=== PATIENT | female | born 1985 | race African-American/Black ===

== ENCOUNTER 2016-05-17 15:34 | Emergency (ER) | payer SELFPAY ==
[~2016-05-17] VITALS: Ht 167.6 cm; Wt 112.0 kg
[~2016-05-17 15:34] MED LIST: METF500 PO; NOVOLOGSS SQ; ZOFR4TAB3 SL
[2016-05-17 15:42] VITALS: BP 155/103; PULSE 94; RESP 20; TEMP 98.3; O2SAT 100
--- NOTE | 2016-05-17 16:04 | PD ---
HPI Chief Complaint: Diabetic Time Seen by Provider: 16:17 Travel History International Travel<30 days: No Contact w/Intl Traveler<30days: No Traveled to known affect area: No History of Present Illness HPI 31-year-old Afro-[place]ian female presents the emergency department with elevated blood sugars elevated blood pressure after being without her medications for approximately 3 days. Patient normally takes metformin 500 mg 3 times a day as well as lisinopril 20 mg daily. Patient is currently without insurance and has no local PCP. Patient has a mild headache but otherwise no medical complaints currently. She has a history of MRSA in the past. She has no known drug allergies PFSH Past Medical History Cancer: No Cardiovascular Problems: Yes (HTN) High Cholesterol: Yes Diabetes: Yes (METFORMIN) Patient Takes Glucophage: Yes (METFORMIN) Diminished Hearing: No Endocrine: No Genitourinary: No Hypertension: Yes Immune Disorder: No Musculoskeletal: No Neurologic: Yes Psychiatric: No Reproductive: No Respiratory: No Thyroid Disease: No Tetanus Vaccination: Unknown Influenza Vaccination: No ?: Not : 0 Para: 0 Miscarriage: 0 : 0 Past Surgical History Surgical History: No Previous Surgery Other Surgery: No Social History Alcohol Use: Yes (SOCIAL) Tobacco Use: Yes (BLACK AND MILD) Substance Use: No Allergies-Medications (Allergen,Severity, Reaction): Coded Allergies: *MDRO Multi-Drug Resistant Organism (Unverified Allergy, Unknown, 07/26/14) MRSA 2013 Reported Meds & Prescriptions Reported Meds & Active Scripts Active Metformin (Metformin HCl) 500 Mg Tab 500 Mg PO TIDPC With meals Lisinopril 20 Mg Tab 20 Mg PO DAILY Glucophage 500 mg (Metformin HCl) 500 Mg Tab 500 Mg PO DAILY 30 Days Zofran ODT (Ondansetron HCl) 4 Mg Tab 4 Mg SL Q6H PRN Glucophage 500 mg (Metformin HCl) 500 Mg Tab 500 Mg PO BIDPC 30 Days Reported Novolog Insulin Supplemental Scale (Insulin Aspart) 100 /Ml Inj Unit SQ ACHS SLIDING SCALE FOLLOW SLIDIING SCALE DIRECTED 151-200 ONE UNIT 201-250 TWO UNITS 251-300 FOUR UNITS 301-350 SIX UNITS 351-400 EIGHT UNITS CALL PCP IF LESS THAN 70 OR GREATER THAN 400 Review of Systems Except as stated in HPI: all other systems reviewed are Neg General / Constitutional: No: Fever Eyes: No: Visual changes HENT: Positive: Headaches (mild generalized) Cardiovascular: No: Chest Pain or Discomfort Respiratory: No: Shortness of Breath Gastrointestinal: No: Abdominal Pain Genitourinary: No: Dysuria Musculoskeletal: No: Pain Skin: No Rash Neurologic: No: Weakness Psychiatric: No: Depression Endocrine: No: Polydipsia Hematologic/Lymphatic: No: Easy Bruising Physical Exam Narrative GENERAL: Patient appears in no acute distress. SKIN: Warm and dry. Normal color. Normal turgor. HEAD: Atraumatic. Normocephalic. EYES: Pupils equal and round. No scleral icterus. No injection or drainage. ENT: No nasal bleeding or discharge. Mucous membranes pink and moist. Pharynx is normal. NECK: Trachea midline. No JVD. Neck is supple nontender. CARDIOVASCULAR: Regular rate and rhythm. No murmurs gallops or rubs. RESPIRATORY: No accessory muscle use. Clear to auscultation. Breath sounds equal bilaterally. GASTROINTESTINAL: Abdomen soft, non-tender, nondistended. Hepatic and splenic margins not palpable. MUSCULOSKELETAL: Extremities without clubbing, cyanosis, or edema. No obvious deformities. NEUROLOGICAL: Awake and alert. No obvious cranial nerve deficits. Motor grossly within normal limits. Five out of 5 muscle strength in the arms and legs. Normal speech. PSYCHIATRIC: Appropriate mood and affect; insight and judgment normal. Data Data Last Documented VS Vital Signs Date Time Temp Pulse Resp B/P Pulse Ox O2 Delivery O2 Flow Rate FiO2 05/17/16 15:57 Room Air 05/17/16 15:42 98.3 94 20 155/103 100 MDM Medical Decision Making Medical Screen Exam Complete: Yes Emergency Medical Condition: Yes Differential Diagnosis Hyperglycemia. Type 2 diabetes not controlled. Hypertension. Need for medication refills. Narrative Course Patient is felt to be medically stable at time of exam. Patient is discussed with Dr. Lira who feels the patient can be given refills of her medication follow with the [facility] clinic. Further workup was not felt necessary at this time. Patient is given a prescription for metformin 500 mg 3 times a day #90 with 2 refills. Patient is given a prescription for lisinopril 20 mg daily #30 with 2 refills. Patient is to follow with the [facility] clinic as discussed. Patient can return to emergency Department with worsening symptoms as necessary. Diagnosis Primary Impression: Diabetes mellitus Qualified Code: E11.65 - Type 2 diabetes mellitus with hyperglycemia, without long-term current use of insulin Additional Impression: Hypertension Qualified Code: I10 - Essential hypertension Referrals: [facility] 1 week Patient Instructions: 2 Gram Sodium Diet (GEN), General Instructions Additional Instructions: Further workup was not felt necessary at this time. Patient is given a prescription for metformin 500 mg 3 times a day #90 with 2 refills. Patient is given a prescription for lisinopril 20 mg daily #30 with 2 refills. Patient is to follow with [facility] as discussed. Patient can return to emergency Department with worsening symptoms as necessary. Med/Other Pt SpecificInfo: Prescription(s) given Scripts Metformin 500 Mg Qjd120 Mg PO TIDPC #90 TAB Ref 2 With meals Prov:Genaro Lira MD 05/17/16 Lisinopril 20 Mg Tab20 Mg PO DAILY #30 TAB Ref 2 Prov:Genaro Lira MD 05/17/16 Disposition: 01 DISCHARGE HOME Condition: Stable Hua Coates May 17, 2016 16:04
[2016-05-17] MEDS ORDERED: METF500T PO (16:18)
[2016-05-17] MEDS ORDERED: LISI-515 PO (16:18)
[2016-05-17 16:38] VITALS: BP 150/100
== END 2016-05-17 16:59 | disposition home or self-care (01) ==
LOC: PHEFT 15:34
DX: E11.65 Type 2 diabetes mellitus with hyperglycemia (principal); I10 Essential (primary) hypertension; Z79.4 Long term (current) use of insulin
CPT/HCPCS: 99284

== ENCOUNTER 2016-11-24 15:50 | Emergency (ER) | payer SELFPAY ==
[~2016-11-24] VITALS: Ht 167.6 cm; Wt 112.0 kg
[~2016-11-24 15:50] MED LIST changes: +LISI-515 PO; +METF500T PO
[2016-11-24 15:52] VITALS: BP 175/107; PULSE 100; RESP 18; TEMP 99.3; O2SAT 100
--- NOTE | 2016-11-24 17:09 | PD ---
HPI Chief Complaint: Headache Time Seen by Provider: 17:01 Travel History International Travel<30 days: No Contact w/Intl Traveler<30days: No Traveled to known affect area: No History of Present Illness HPI 31yo F with PMH of HTN and DM presents to the ED with c/o headache for 4 days. Pt states she ran out of her lisinopril and metformin 4 days ago and had similar headache when she ran out of her medications. Headache is bitemporal, pressure like, intermittent and relieved with acetaminophen yesterday when she took it last night. However, headache returned today. Denies any fever, visual changes, chest pain, sob, n/v, abdominal pain, focal weakness or numbness. LMP last month. PFSH Past Medical History Cancer: No Cardiovascular Problems: Yes High Cholesterol: Yes Diabetes: Yes Patient Takes Glucophage: Yes Diminished Hearing: No Endocrine: No Genitourinary: No Hypertension: Yes Immune Disorder: No Musculoskeletal: No Neurologic: Yes Psychiatric: No Reproductive: No Respiratory: No Thyroid Disease: No ?: Not : 0 Para: 0 Miscarriage: 0 : 0 Past Surgical History Surgical History: No Previous Surgery Other Surgery: No Social History Alcohol Use: Yes (SOCIAL) Tobacco Use: No (denies) Substance Use: No Allergies-Medications (Allergen,Severity, Reaction): Coded Allergies: *MDRO Multi-Drug Resistant Organism (Unverified Allergy, Unknown, 07/26/14) MRSA 2013 Reported Meds & Prescriptions Reported Meds & Active Scripts Active Metformin (Metformin HCl) 500 Mg Tab 500 Mg PO TIDPC With meals Lisinopril 20 Mg Tab 20 Mg PO DAILY Review of Systems Except as stated in HPI: all other systems reviewed are Neg Physical Exam Narrative GENERAL: 31yo F not in distress. SKIN: Focused skin assessment warm/dry. HEAD: Atraumatic. Normocephalic. EYES: Pupils equal and round at 4mm bilaterally. No scleral icterus. No injection or drainage. ENT: No nasal bleeding or discharge. Mucous membranes pink and moist. NECK: Trachea midline. No JVD. CARDIOVASCULAR: Regular rate and rhythm. No murmur appreciated. RESPIRATORY: No accessory muscle use. Clear to auscultation. Breath sounds equal bilaterally. GASTROINTESTINAL: Abdomen soft, non-tender, nondistended. MUSCULOSKELETAL: No obvious deformities. No clubbing. No cyanosis. No edema. NEUROLOGICAL: Awake and alert. No obvious cranial nerve deficits. Motor grossly within normal limits. Normal speech. PSYCHIATRIC: Appropriate mood and affect; insight and judgment normal. Data Data Last Documented VS Vital Signs Date Time Temp Pulse Resp B/P (MAP) Pulse Ox O2 Delivery O2 Flow Rate FiO2 11/24/16 18:10 89 18 178/88 (118) 98 Room Air 11/24/16 15:52 99.3 Orders Orders Ketorolac Inj (Toradol Inj) (11/24/16 17:15) Basic Metabolic Panel (Bmp) (11/24/16 17:05) Lisinopril (Prinivil) (11/24/16 17:15) Labs Laboratory Tests Test 11/24/16 17:18 Blood Urea Nitrogen 27 MG/DL Creatinine 1.70 MG/DL Random Glucose 205 MG/DL Calcium Level 8.2 MG/DL Sodium Level 135 MEQ/L Potassium Level 4.4 MEQ/L Chloride Level 103 MEQ/L Carbon Dioxide Level 22.9 MEQ/L Anion Gap 9 MEQ/L Estimat Glomerular Filtration Rate 42 ML/MIN MDM Medical Decision Making Medical Screen Exam Complete: Yes Emergency Medical Condition: Yes Differential Diagnosis Migraine headache vs. tension headache vs. headache secondary to hypertension Narrative Course 31yo F with bilateral temporal headache for 4 days. Pt is well appearing and has no red flags. Pt's blood pressure is elevated at 175/107 and ran out of her lisinopril 4 days ago. Pt given lisinopril and blood pressure improved. Labs reviewed, and BUN/creatinine is elevated at 27/1.70. Pt tolerating PO, instructed pt to hydrate orally. Instructed pt to follow up with primary care or [facility] regarding this. Glucose is elevated at 205. No increased in anion gap. CO2 normal. Pt reevaluated after toradol and headache has resolved. Return precautions given. Diagnosis Primary Impression: Elevated serum creatinine Patient Instructions: General Instructions Departure Forms: Tests/Procedures Additional Instructions: Please follow up with [facility] clinic or your primary care physician regarding your elevated creatinine level of 1.70. Return to the ED if symptoms worsen. Med/Other Pt SpecificInfo: Prescription(s) given Scripts Metformin (Metformin) 500 Mg Tab 500 MG PO BIDPC for Blood Sugar Management, #60 TAB 0 Refills With meals Prov: Galina García DO 11/24/16 Lisinopril (Lisinopril) 20 Mg Tab 20 MG PO DAILY, #30 TAB 0 Refills Prov: Galina García DO 11/24/16 Disposition: 01 DISCHARGE HOME Condition: Stable Galina García DO Nov 24, 2016 17:09
[2016-11-24] MEDS ORDERED: LISINOPRIL 20 MG TAB PO ONE (17:15)
[2016-11-24] MEDS ORDERED: KETOROLAC TROMETHAMINE 30 MG/ML (IVP) VIAL IV PUSH ONE (17:15)
[2016-11-24 17:43] LABS: POTASSIUM 4.4 MEQ/L (3.5-5.1)
[2016-11-24 17:46] LABS: BICARBONATE 22.9 MEQ/L (21.0-32.0)
[2016-11-24 18:10] VITALS: BP 178/88; PULSE 89; RESP 18; O2SAT 98
[2016-11-24] MEDS ORDERED: METF500T PO (18:53)
[2016-11-24] MEDS ORDERED: LISI-515 PO (18:53)
[2016-11-24 19:29] VITALS: BP 189/117
== END 2016-11-24 19:42 | disposition home or self-care (01) ==
LOC: PHED 15:50
DX: R79.89 Other specified abnormal findings of blood chemistry (principal); I10 Essential (primary) hypertension; E11.9 Type 2 diabetes mellitus without complications; Z79.84 Long term (current) use of oral hypoglycemic drugs; Z79.899 Other long term (current) drug therapy
CPT/HCPCS: 80048; 96374; 99284; J1885

== ENCOUNTER 2017-05-05 11:46 | Emergency (ER) | payer SELFPAY ==
[~2017-05-05] VITALS: Ht 165.1 cm; Wt 111.2 kg
[~2017-05-05 11:46] MED LIST changes: -METF500 PO; -NOVOLOGSS SQ; -ZOFR4TAB3 SL
[2017-05-05 11:54] VITALS: BP 185/107; PULSE 88; RESP 16; TEMP 98; O2SAT 100
--- NOTE | 2017-05-05 12:25 | PD ---
HPI . Headache Chief Complaint: Hypertension Time Seen by Provider: 12:17 Travel History International Travel<30 days: No Contact w/Intl Traveler<30days: No Traveled to known affect area: No History of Present Illness HPI Patient presents with chief complaint of a frontal and bitemporal headache which started several days ago. She is unable to characterize her pain. He does state that the pain is improved by lying in a dark room with her eyes closed. She has not tried taking any medications for it. She denies any associated symptoms such as blurred vision, fever or nausea. In addition, she is complaining with left low back pain which is exacerbated by movement. Lastly, she states that she is out of her blood pressure medication. I asked her who prescribes her blood pressure medication as she states "the ER." [facility] Past Medical History Cancer: No Cardiovascular Problems: Yes High Cholesterol: Yes Diabetes: Yes Diminished Hearing: No Endocrine: No Genitourinary: No Hypertension: Yes Immune Disorder: No Musculoskeletal: No Neurologic: Yes Psychiatric: No Reproductive: No Respiratory: No Thyroid Disease: No ?: Not LMP: 04/20/17 : 0 Para: 0 Miscarriage: 0 : 0 Past Surgical History Other Surgery: No Social History Alcohol Use: Yes (SOCIAL) Tobacco Use: No (denies) Substance Use: No Allergies-Medications (Allergen,Severity, Reaction): Coded Allergies: *MDRO Multi-Drug Resistant Organism (Unverified Allergy, Unknown, 05/05/17) MRSA 2013 Reported Meds & Prescriptions Reported Meds & Active Scripts Active Metformin (Metformin HCl) 500 Mg Tab 500 Mg PO BIDPC With meals Lisinopril 20 Mg Tab 20 Mg PO DAILY Metformin (Metformin HCl) 500 Mg Tab 500 Mg PO TIDPC With meals Lisinopril 20 Mg Tab 20 Mg PO DAILY Review of Systems Except as stated in HPI: all other systems reviewed are Neg General / Constitutional: No: Fever, Chills Eyes: No: Blurred Vision HENT: Positive: Headaches Gastrointestinal: No: Nausea, Vomiting Physical Exam Narrative GENERAL: Awake and alert and in no acute distress. SKIN: Warm and dry. HEAD: Normocephalic/atraumatic. EYES: Pupils are equal. Extraocular movements are intact. NECK: Normal range of motion. Supple. CARDIOVASCULAR: Regular rate and rhythm. RESPIRATORY: Nonlabored respirations. MUSCULOSKELETAL: She has mild tenderness to palpation of the left paraspinous muscles of the low back. NEUROLOGICAL: A and O 3. No murmurs 2 through 12 are grossly intact. 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 [id number] exam is intact. PSYCHIATRIC: Appropriate mood and affect. Data Data Last Documented VS Vital Signs Date Time Temp Pulse Resp B/P (MAP) Pulse Ox O2 Delivery O2 Flow Rate FiO2 05/05/17 11:54 98.0 88 16 185/107 (133) 100 Orders Orders Ketorolac Inj (Toradol Inj) (05/05/17 12:30) MDM Medical Decision Making Medical Screen Exam Complete: Yes Emergency Medical Condition: Yes Differential Diagnosis Differential diagnosis of headache includes but is not limited to migraine, muscle contraction headache, brain tumor, brain bleed Narrative Course This patient presents with the chief complaint of a headache. She drove herself here so I cannot give her the headache cocktail. I will give her a Toradol shot. In addition, she is out of her blood pressure medication. I will refill it. I will give her a prescription for Ultram that she can take as needed for her back pain. Diagnosis Primary Impression: Headache Qualified Codes: G44.209 - Tension-type headache, unspecified, not intractable Additional Impressions: Hypertension Qualified Codes: I10 - Essential (primary) hypertension Back pain Qualified Codes: M54.5 - Low back pain Patient Instructions: Acute Headache (DC), Acute Low Back Pain (DC), Chronic Hypertension (DC), General Instructions Med/Other Pt SpecificInfo: Prescription(s) given Scripts Tramadol (Ultram) 50 Mg Tab 50 MG PO Q4H Y for PAIN, #12 TAB 0 Refills Prov: Roshni Moya MD 05/05/17 Lisinopril (Lisinopril) 20 Mg Tab 20 MG PO DAILY, #30 TAB 0 Refills Prov: Roshni Moya MD 05/05/17 Disposition: 01 DISCHARGE HOME Condition: Stable Roshni Moya MD May 05, 2017 12:25
[2017-05-05] MEDS ORDERED: LISI-515 PO (12:30)
[2017-05-05] MEDS ORDERED: KETOROLAC TROMETHAMINE 60 MG/2 ML (IM) VIAL IM ONE (12:30)
[2017-05-05] MEDS ORDERED: TRAM50 PO (12:30)
[2017-05-05 13:13] VITALS: BP 179/106; PULSE 87; RESP 16; O2SAT 99
== END 2017-05-05 13:20 | disposition home or self-care (01) ==
LOC: PHED 11:46
DX: G44.209 Tension-type headache, unspecified, not intractable (principal); I10 Essential (primary) hypertension; M54.5 Low back pain; E11.9 Type 2 diabetes mellitus without complications; E78.00 Pure hypercholesterolemia, unspecified
CPT/HCPCS: 96372; 99283; J1885

== ENCOUNTER 2017-06-14 14:58 | Emergency (ER) | payer OTHER ==
[~2017-06-14] VITALS: Ht 165.1 cm; Wt 109.0 kg
[~2017-06-14 14:58] MED LIST changes: +TRAM50 PO
[2017-06-14 15:08] VITALS: BP 154/85; PULSE 80; RESP 16; TEMP 99.3; O2SAT 100
[2017-06-14] MEDS ORDERED: DOXY100C PO (15:47)
--- NOTE | 2017-06-14 15:52 | PD ---
HPI Chief Complaint: Laceration/Skin Injury Time Seen by Provider: 15:17 Travel History International Travel<30 days: No Contact w/Intl Traveler<30days: No Traveled to known affect area: No History of Present Illness HPI 32-year-old right-handed female presents emergency department for evaluation of laceration to the left middle finger after cutting bread today. 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 Patient says that she is only just now able to control the bleeding, at presentation. She denies numbness or tingling of the extremity or finger. She has full range of motion of her finger. States her pain is mild to moderate, worse with movement, decreases with rest. Patient states that she has a history of high blood pressure and diabetes. Patient does not have a primary care physician. Last tetanus vaccination in 2013. PFSH Past Medical History Cancer: No Cardiovascular Problems: Yes High Cholesterol: Yes Diabetes: Yes Patient Takes Glucophage: Yes Diminished Hearing: No Endocrine: No Genitourinary: No Hypertension: Yes Immune Disorder: No Musculoskeletal: No Neurologic: Yes Psychiatric: No Reproductive: No Respiratory: No Immunizations Current: Yes Myocardial Infarction: Yes Thyroid Disease: No Influenza Vaccination: No ?: Not LMP: 06/12/2017 : 0 Para: 0 Miscarriage: 0 : 0 Past Surgical History Coronary Stent: Yes (x1) Other Surgery: No Social History Alcohol Use: Yes (SOCIAL) Tobacco Use: No (former) Substance Use: No Allergies-Medications (Allergen,Severity, Reaction): Coded Allergies: *MDRO Multi-Drug Resistant Organism (Unverified Allergy, Unknown, 05/05/17) MRSA 2013 Reported Meds & Prescriptions Reported Meds & Active Scripts Active Doxycycline Hyclate 100 Mg Cap 100 Mg PO BID 10 Days Ultram (Tramadol HCl) 50 Mg Tab 50 Mg PO Q4H PRN Lisinopril 20 Mg Tab 20 Mg PO DAILY Metformin (Metformin HCl) 500 Mg Tab 500 Mg PO BIDPC With meals Metformin (Metformin HCl) 500 Mg Tab 500 Mg PO TIDPC With meals Lisinopril 20 Mg Tab 20 Mg PO DAILY Review of Systems Except as stated in HPI: all other systems reviewed are Neg Physical Exam Narrative GENERAL: Well-developed, well-nourished in no apparent distress SKIN: Focused skin assessment warm/dry. HEAD: Atraumatic. Normocephalic. EYES: Pupils equal and round. No scleral icterus. No injection or drainage. ENT: No nasal bleeding or discharge. Mucous membranes pink and moist. NECK: Trachea midline. No JVD. CARDIOVASCULAR: Regular rate and rhythm. No murmur appreciated. RESPIRATORY: No accessory muscle use. Clear to auscultation. Breath sounds equal bilaterally. MUSCULOSKELETAL: No obvious deformities. No clubbing. No cyanosis. No edema. Left index finger, medial aspect-laceration mid-lateral fingerpad, not involving the nail bed. Bleeding controlled, neurovascularly intact. NEUROLOGICAL: Awake and alert. No obvious cranial nerve deficits. Motor grossly within normal limits. Normal speech. PSYCHIATRIC: Appropriate mood and affect; insight and judgment normal. Data Data Last Documented VS Vital Signs Date Time Temp Pulse Resp B/P (MAP) Pulse Ox O2 Delivery O2 Flow Rate FiO2 06/14/17 15:08 99.3 80 16 154/85 (108) 100 Orders Orders Ed Discharge Order (06/14/17 15:52) [facility] Medical Decision Making Medical Screen Exam Complete: Yes Emergency Medical Condition: Yes Differential Diagnosis Left middle finger laceration, avulsion, abrasion Narrative Course 32-year-old right-handed female presents emergency department for evaluation of laceration to the left middle finger after cutting bread today. 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 Patient says that she is only just now able to control the bleeding, at presentation. She denies numbness or tingling of the extremity or finger. She has full range of motion of her finger. States her pain is mild to moderate, worse with movement, decreases with rest. Patient states that she has a history of high blood pressure and diabetes. Patient does not have a primary care physician. Last tetanus vaccination in 2013. Vital signs are stable. Because patient did cut her finger while at [employer] and this is a location of saltwater exposure with marine animals life, will cover with doxycycline. Patient advised on wound care. Advised to avoid submersion of the wound, avoid trauma. Advised to follow-up with his a [facility] for her regular health. Suture removal in 7-10 days. Advised to return to emergency department for signs of infection. Procedures Procedure Narrative LACERATION LOCATION: left middle finger, distal aspect, medial to nail LENGTH: 7.5mm NUMBER OF STITCHES/CLIFF: 5-0 prolene, 3 simple interrupted REPAIR: The area of the laceration was prepped with Betadine and sterilely draped. . The wound was copiously irrigated and explored without evidence of foreign body, tendon injury or neurovascular injury. The wound was closed using 5-0 Prolene. This was a single layer repair. A sterile dressing was applied. The patient was advised to keep the dressing clean and dry. Patient tolerated the procedure well. Diagnosis Primary Impression: Finger laceration Qualified Codes: S61.213A - Laceration without foreign body of left middle finger without damage to nail, initial encounter Referrals: [facility] Departure Forms: Tests/Procedures, Work Release Enter return to work date: Jun 16, 2017 Special Instructions: Avoid excessive moisture or submersion to the finger for at least 7-10 days. Additional Instructions: Follow-up with [facility] for your healthcare. Return to the emergency department for suture removal in 7-10 days. Take medication as prescribed. If your finger develops increased swelling, erythema, or develops pus return to emergency department for further evaluation and treatment. Keep the area clean and dry for 24 hours. After 24 hours she may wash and soap and water but be sure to dry the area thoroughly to avoid complications. Scripts Doxycycline Hyclate (Doxycycline Hyclate) 100 Mg Cap 100 MG PO BID for Infection for 10 Days, #20 CAP 0 Refills Prov: Macy Guevara 06/14/17 Disposition: 01 DISCHARGE HOME Condition: Stable Macy Guevara Jun 14, 2017 15:52
== END 2017-06-14 16:03 | disposition home or self-care (01) ==
LOC: PHEFT 14:58
DX: S61.213A Laceration without foreign body of left middle finger without damage to nail, initial encounter (principal); E11.9 Type 2 diabetes mellitus without complications; E78.00 Pure hypercholesterolemia, unspecified; I10 Essential (primary) hypertension; I25.2 Old myocardial infarction; W26.0XXA Contact with knife, initial encounter; Y93.G1 Activity, food preparation and clean up; Y92.511 Restaurant or cafe as the place of occurrence of the external cause; Z87.891 Personal history of nicotine dependence
CPT/HCPCS: 12001

== ENCOUNTER 2017-06-16 13:41 | Emergency (ER) | payer SELFPAY ==
[~2017-06-16] VITALS: Ht 165.1 cm; Wt 109.0 kg
[~2017-06-16 13:41] MED LIST changes: +DOXY100C PO
[2017-06-16 13:46] VITALS: BP 150/91; PULSE 86; RESP 16; TEMP 98; O2SAT 100
--- NOTE | 2017-06-16 14:09 | PD ---
HPI Chief Complaint: Wound/Suture/Staple Re-Check Time Seen by Provider: 14:01 Travel History International Travel<30 days: No Contact w/Intl Traveler<30days: No Traveled to known affect area: No History of Present Illness HPI 32-year-old female presents to the emergency department for reevaluation of a laceration to her left third finger that occurred 2 days ago. Patient was seen in the emergency department and 3 sutures were placed. The patient states she is taking her antibiotic as directed. She does report some swelling to the left hand. She states that she needs another note for work as she is unable to work due to the pain in the finger. She states that overall, the laceration is looking well to her. No fevers. Current pain is 7/10, without radiation, aching. Mild severity PFSH Past Medical History Cancer: No Cardiovascular Problems: Yes (HTN) High Cholesterol: Yes Diabetes: Yes Diminished Hearing: No Endocrine: No Genitourinary: No Hypertension: Yes Immune Disorder: No Musculoskeletal: No Neurologic: Yes Psychiatric: No Reproductive: No Respiratory: No Immunizations Current: Yes Myocardial Infarction: Yes Thyroid Disease: No ?: Not : 0 Para: 0 Miscarriage: 0 : 0 Past Surgical History Coronary Stent: Yes (x1) Other Surgery: No Social History Alcohol Use: Yes (SOCIAL) Tobacco Use: No (former) Substance Use: No Allergies-Medications (Allergen,Severity, Reaction): Coded Allergies: *MDRO Multi-Drug Resistant Organism (Unverified Allergy, Unknown, 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 Afebrile SKIN: Focused skin assessment warm/dry. Patient has a well-healing laceration to the left third distal finger just lateral to the nail without erythema or drainage. [address] HEAD: Normocephalic. Atraumatic. EYES: No scleral icterus. No injection or drainage. NECK: Supple, trachea midline. No JVD or lymphadenopathy. RESPIRATORY: No accessory muscle use. GASTROINTESTINAL: Abdomen soft, non-tender, nondistended. MUSCULOSKELETAL: No cyanosis, or edema. Data Data Last Documented VS Vital Signs Date Time Temp Pulse Resp B/P (MAP) Pulse Ox O2 Delivery O2 Flow Rate FiO2 06/16/17 13:46 98.0 86 16 150/91 (110) 100 MDM Medical Decision Making Medical Screen Exam Complete: Yes Emergency Medical Condition: Yes Medical Record Reviewed: Yes Differential Diagnosis Laceration recheck versus cellulitis versus he has Narrative Course 32-year-old female presents to the emergency department for recheck of a laceration to the left third finger. The laceration appears to be healing well without evidence of infection or complication. Patient is instructed to continue her antibiotic and proper wound care. The patient was discharged in stable condition with instructions, including return instructions and follow up instructions. Diagnosis Primary Impression: Laceration of finger of left hand Qualified Codes: S61.213D - Laceration without foreign body of left middle finger without damage to nail, subsequent encounter Referrals: Primary Care Physician as needed Patient Instructions: Care For Your Stitches (ED), General Instructions Departure Forms: Tests/Procedures, Work Release Enter return to work date: Jun 18, 2017 Additional Instructions: Continue antibiotic as prescribed until gone. Clean twice daily with soap and water and apply [id number] antibiotic ointment. Keep clean and dry. No swimming or hot tubs until healed. Suture removal in 5-7 more days. Follow-up with a primary care physician. Return to the emergency department for any acute worsening of symptoms. Med/Other Pt SpecificInfo: No Change to Meds Disposition: 01 DISCHARGE HOME Condition: Stable ElverPatricia Jun 16, 2017 14:09
[2017-06-16] MEDS ORDERED: insulin SQ ×2 (14:30)
[2017-06-16] MEDS ORDERED: METO50TA PO (14:30)
== END 2017-06-16 14:48 | disposition home or self-care (01) ==
LOC: PHEFT 13:41
DX: S61.213D Laceration without foreign body of left middle finger without damage to nail, subsequent encounter (principal); I10 Essential (primary) hypertension; E78.00 Pure hypercholesterolemia, unspecified; E11.9 Type 2 diabetes mellitus without complications; I25.2 Old myocardial infarction; X58.XXXD Exposure to other specified factors, subsequent encounter; Z87.891 Personal history of nicotine dependence; Z79.899 Other long term (current) drug therapy
CPT/HCPCS: 99281